=== PATIENT | female | born 1960 | race Caucasian/White ===

== ENCOUNTER 2019-05-02 06:51 | Day surgery (SDC) | payer OTHER ==
[~2019-05-02] VITALS: Ht 172.7 cm; Wt 77.5 kg
[2019-05-02] VITALS (7 sets, daily range): BP systolic 87–148; BP diastolic 50–71; PULSE 81–89; RESP 15–19; Ht 172.7 cm; Wt 77.5 kg
[2019-05-02] MEDS ORDERED: CYCLOPENTOLATE 1% 2 ML OPH LEFT EYE SCH (07:00)
[2019-05-02] MEDS ORDERED: NEPAFENAC 0.1% 3 ML OPH LEFT EYE SCH (07:00)
[2019-05-02] MEDS ORDERED: TROPICAMIDE 1% 15 ML OPH LEFT EYE SCH (07:00)
[2019-05-02] MEDS ORDERED: LACTATED RINGER'S 1,000 ML (ENTER RATE) IV SCH (07:00)
[2019-05-02] MEDS ORDERED: MOXIFLOXACIN 0.5% 3 ML OPH LEFT EYE SCH (07:00)
[2019-05-02] MEDS ORDERED: PHENYLephrine 2.5% 15 ML OPH LEFT EYE SCH (07:00)
[2019-05-02] MEDS ORDERED: hydrALAzine 20 MG INJ IV PRN (08:00)
[2019-05-02] MEDS ORDERED: LABETALOL HCL 20MG INJ IV PRN (08:00)
[2019-05-02] MEDS ORDERED: LIDOCAINE 1% (MPF) 5 ML VIAL INJ ONE (08:14)
[2019-05-02] MEDS ORDERED: TETRACAINE 0.5% 4 ML OPH LEFT EYE ONE (08:15)
[2019-05-02] MEDS ORDERED: TIMOLOL 0.5% 5 ML OPH LEFT EYE ONE (08:16)
[2019-05-02] MEDS ORDERED: LIDOCAINE 1% (MPF) 5 ML VIAL ONE (08:26)
[2019-05-02] MEDS ORDERED: TIMOLOL 0.5% 5 ML OPH ONE (08:27)
[2019-05-02] MEDS ORDERED: TETRACAINE 0.5% 4 ML OPH ONE (08:27)
[2019-05-02] MEDS ORDERED: TOBRAMYCIN/DEXAMETH 3.5 GM OPH OINT ONE (08:27)
[2019-05-02] MEDS ORDERED: PROPOFOL 200 MG INJ ONE (09:00)
[2019-05-02] MEDS ORDERED: FENTAnyl 50 MCG/ML VIAL ONE ×2 (09:04→10:00)
[2019-05-02] MEDS ORDERED: MIDAZOLAM 1 MG/ML 2 ML INJ ONE (09:04)
[2019-05-02] MEDS ORDERED: METOCLOPRAMIDE 10 MG INJ ONE (09:05)
[2019-05-02] MEDS ORDERED: ACETAMINOPHEN 325 MG TAB PO PRN (10:00)
[2019-05-02] MEDS ORDERED: FENTAnyl 50 MCG/ML VIAL IV PRN ×2 (10:00)
[2019-05-02] MEDS ORDERED: MEPERIDINE 25 MG INJ IV PRN (10:00)
[2019-05-02] MEDS ORDERED: ONDANSETRON 4 MG INJ IV PRN (10:00)
[2019-05-02] MEDS ORDERED: PROCHLORPERAZINE 10 MG INJ IV PRN (10:00)
[2019-05-02] MEDS ORDERED: HYDROmorphONE 1 MG/5 ML IV SYRINGE IV PRN ×2 (10:00)
[2019-05-02] MEDS ORDERED: OXYCODONE/ACETAMINOPHEN (5/325) TAB PO PRN (10:00)
== END 2019-05-02 10:54 | disposition home or self-care (01) ==
LOC: SDS 06:51
PROVIDERS: ATTEND Ophthalmology
DX: H25.042 Posterior subcapsular polar age-related cataract, left eye (principal); I10 Essential (primary) hypertension
CPT/HCPCS: J2250; J2765; J3010; V2632